=== PATIENT | female | born 1995 | race Caucasian/White ===

== ENCOUNTER 2018-12-31 22:18 | Emergency (ER) | payer OTHER ==
[2018-12-31 22:36] VITALS: BMI 22.8
[2018-12-31] MEDS ORDERED: ACETAMINOPHEN 325 MG TABLET (FP) PO ONE (23:29)
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
[2018-12-31] MEDS ORDERED: ACETAMINOPHEN 325 MG TABLET (FP) ONE (23:36)
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
[2019-01-01] MEDS ORDERED: IBUPROFEN 600 MG TABLET (FP) PO ONE ×2 (00:25→00:33)
[2019-01-01 00:43] VITALS: BP 106/73; PULSE 68; TEMP 98.6
== END 2019-01-01 00:50 | disposition home or self-care (01) ==
LOC: JER 22:18
DX: S09.8XXA Other specified injuries of head, initial encounter (principal); S00.83XA Contusion of other part of head, initial encounter; Y04.2XXA Assault by strike against or bumped into by another person, initial encounter; Y93.89 Activity, other specified; Y92.810 Car as the place of occurrence of the external cause; Y99.8 Other external cause status; Y07.9 Unspecified perpetrator of maltreatment and neglect
CPT/HCPCS: 70450-TC; 70486-TC; 84703; 99282-25